=== PATIENT | female | born 1965 | race Caucasian/White ===

== ENCOUNTER 2020-05-11 06:23 | Inpatient (IN) ==
[2020-05-11] MEDS ORDERED: DOPamine 800 MG/250 ML PREMIX IV ONE (06:24)
[2020-05-11] MEDS ORDERED: SODIUM CHLORIDE 0.9% 1,000 ML IV STA (07:01)
[2020-05-11] MEDS ORDERED: VANCOMYCIN INJ 1,000 MG in SODIUM CHLORIDE 0.9% 250 ML IV STA (07:02)
[2020-05-11] MEDS ORDERED: LEVOFLOXACIN INJ 750 MG in PREMIX 1 EACH IV STA (07:02)
[2020-05-11 07:24] LABS: Basophils # 0.2 10*3/uL (0.0-0.2); Basophils % 0.4 % (0.0-0.8); Eosinophils # 0.3 10*3/uL (0.0-0.87); Eosinophils % 0.9 % (0.00-10.9); Hemoglobin 9.3 GM/DL (12.0-16.0); Immature Granulocytes % 4.4 %; Immature Granulocytes Absolute 1.64 #; Lymphocytes # 8.8 10*3/uL (1.4-4.0); Lymphocytes % 23.9 % (21.3-54.2); Mean Corpuscular HGB Conc 33.2 GM/DL (32-36); Mean Corpuscular Volume 84.1 FL (87-102); Mean Platelet Volume 11.8 FL (9.6-12.0); NRBC # 2.86 10*3/uL; Neutrophils % 69.4 % (38.7-73.9); Platelet Count 163 T/CUMM (130-400); Red Blood Count 3.33 MC/CUMM (3.8-5.5); Red Cell Distribution Width 15.5 % (9.3-17.3)
[2020-05-11 07:41] LABS: Band Neutrophils 2 % (0-10); Eosinophils 1 % (0-10); Lymphocytes 33 % (20-55); Nucleated Red Blood Cells 4 (0-5); Platelet Estimate Adequate; Segmented Neutrophils 62 % (50-85); Total Cells Counted 100
[2020-05-11 07:42] LABS: Hypochromasia Slight; Microcytosis Slight; Ovalocytes Slight
[2020-05-11 07:45] LABS: INR 2.7; PT Patient Result 27.5 SECS (9.8-11.9); Partial Thromboplastin Time 43.8 SECS (23.9-33.8)
[2020-05-11 07:51] LABS: Albumin 2.4 G/DL (3.4-5.0); Bilirubin,Direct 1.37 MG/DL (0.0-0.20); Bilirubin,Indirect 4.1 MG/DL (0.0-1.0); Bilirubin,Total 5.5 MG/DL (0.2-1.0)
[2020-05-11] MEDS ORDERED: ONDANSETRON 4 MG/2 ML VIAL IV STA (07:56)
[2020-05-11] MEDS ORDERED: PROMETHAZINE 25 MG/1 ML VIAL IM PRN (08:22)
[2020-05-11] MEDS ORDERED: ALBUTEROL 2.5 MG/3 ML NEB RESP TX PRN (08:22)
[2020-05-11] MEDS ORDERED: ONDANSETRON 4 MG/2 ML VIAL IV PRN (08:22)
[2020-05-11] MEDS: PANTOPRAZOLE 40 MG VIAL IV SCH (08:45)
[2020-05-11] MEDS ORDERED: SODIUM CHLORIDE 0.9% 1,000 ML IV PRN ×2 (08:59→09:30)
[2020-05-11] MEDS ORDERED: PROTHROMBIN COMPLEX CONC 1,500 UNIT in IV BAG 1 EACH IV ONE (08:59)
[2020-05-11] MEDS: DEXTROSE 5% NACL 0.9% 1,000 ML IV SCH ×2 (09:00→18:25)
[2020-05-11] MEDS ORDERED: PHYTONADIONE 10 MG/1 ML AMP SUBCUT ONE ×2 (09:30→17:28)
[2020-05-11] MEDS ORDERED: HYDROmorphone 2 MG/1 ML VIAL IV PRN (09:43)
[2020-05-11 10:17] LABS: Calcium 7.1 MG/DL (8.5-10.1); Osmolality,Calculated 290.4 MOS/KG (273-304); Potassium 4.5 MMOL/L (3.5-5.1)
[2020-05-11] MEDS ORDERED: VANCOMYCIN INJ 1,000 MG in SODIUM CHLORIDE 0.9% 250 ML IV ONE (11:00)
[2020-05-11] MEDS: PIPERACILLIN/TAZOBACTAM 3,375 MG in SODIUM CHLORIDE 0.9% 100 ML IV SCH ×2 (11:46→19:21)
[2020-05-11] MEDS ORDERED: HEPARIN/NACL 0.9% 2 UNITS/ML 500 ML IV ONE (13:27)
[2020-05-11] MEDS ORDERED: PHENYLEPHRINE DRIP 20 MG/250 ML PREMIX IV ONE (13:27)
[2020-05-11] MEDS ORDERED: INDOMETHACIN SUPP 50 MG SUPP RECTAL ONE (13:29)
[2020-05-11] MEDS ORDERED: SEVOFLURANE 1 UNIT/15 MINUTE INH ONE ×5 (14:18→16:47)
[2020-05-11] MEDS ORDERED: ETOMIDATE 40 MG/20 ML VIAL IV ONE (14:19)
[2020-05-11] MEDS ORDERED: fentaNYL 100 MCG/2 ML VIAL ONE ×2 (14:19→17:16)
[2020-05-11] MEDS ORDERED: SUCCINYLCHOLINE 200 MG/10 ML VIAL ONE (14:19)
[2020-05-11] MEDS ORDERED: MIDAZOLAM 2 MG/2 ML VIAL ONE ×2 (14:19→17:05)
[2020-05-11] MEDS ORDERED: PHENYLEPHRINE 1 MG/10 ML SYRINGE IV ONE (14:19)
[2020-05-11] MEDS ORDERED: LIDOCAINE 2% 5 ML VIAL ONE (14:19)
[2020-05-11] MEDS ORDERED: propofoL 200 MG/20 ML VIAL IV ONE ×2 (14:19→16:47)
[2020-05-11 14:35] LABS: Glucose,Urine (UA) 50 mg/dL (Negative); Protein,Urine >500 MG/DL; Urine Appearance Cloudy (Clear); Urine Color Brown (Yellow); Urine Specific Gravity 1.005 (1.001-1.035)
[2020-05-11 14:36] LABS: Bilirubin,Urine 2+ mg/dL (Negative); Blood, Urine 1+ mg/dL (Negative); Ketones,Urine Negative (Negative); Nitrite,Urine Negative (Negative); Urine Urobilinogen 0.2 EU/DL (0.2-1.0)
[2020-05-11 14:37] LABS: RBC,Urine TNTC /HPF (0-4); WBC,Urine Rare /HPF (0-6)
[2020-05-11 15:59] LABS: INR 2.1; PT Patient Result 21.4 SECS (9.8-11.9)
[2020-05-11] MEDS ORDERED: SODIUM BICARBONATE 50 MEQ/50 ML VIAL IV ONE ×2 (16:13→16:49)
[2020-05-11] MEDS ORDERED: ALBUTEROL INHALER 18 GM INH ONE (16:46)
[2020-05-11] MEDS ORDERED: ONDANSETRON 4 MG/2 ML VIAL ONE (16:46)
[2020-05-11 16:47] LABS: ABG Base Excess -9.7 MMOL/L (-2.5-2.5); ABG HCO3 16.6 MMOL/L (20-26); ABG PCO2 38.9 MM HG (35-48); ABG PH 7.247 (7.35-7.45); Glucose Heart Surgery 167 MG/DL (74-106); Hematocrit Heart Surgery 26.1 PERCENT (37-47); Hemoglobin Heart Surgery 8.4 G/DL (12.0-16.0)
[2020-05-11 16:48] LABS: Potassium Heart/CVR 6.5 MMOL/L (3.5-5.1)
[2020-05-11] MEDS ORDERED: CALCIUM CHLORIDE 1,000 MG/10 ML VIAL IV ONE (16:49)
[2020-05-11 17:45] LABS: ABG Base Excess -10.9 MMOL/L (-2.5-2.5); ABG HCO3 15.7 MMOL/L (20-26); ABG PCO2 40.2 MM HG (35-48); ABG PH 7.214 (7.35-7.45); ABG TCO2 15.6 MMOL/L (23-27); Glucose Heart Surgery 191 MG/DL (74-106); Hematocrit Heart Surgery 23.6 PERCENT (37-47); Hemoglobin Heart Surgery 7.6 G/DL (12.0-16.0); Potassium Heart/CVR 5.8 MMOL/L (3.5-5.1)
[2020-05-11] MEDS ORDERED: SODIUM CHLORIDE 0.9% 1,000 ML IV ONE (17:50)
[2020-05-11] MEDS ORDERED: SODIUM POLYSTYRENE SULFATE 15 GM/60 ML BOTTLE RECTAL ONE (18:08)
[2020-05-11 18:17] LABS: Potassium 5.8 MMOL/L (3.5-5.1)
[2020-05-11] MEDS: DOPamine 800 MG/250 ML PREMIX IV PRN (19:00)
[2020-05-11] MEDS: SODIUM BICARB INJ 100 MEQ in SODIUM CHLORIDE 0.45% 1,000 ML IV SCH (19:21)
[2020-05-11 20:16] LABS: ABG Base Excess -9.1 MMOL/L (-2.5-2.5); ABG PCO2 37.2 MM HG (35-48); ABG PH 7.271 (7.35-7.45); ABG TCO2 16.3 MMOL/L (23-27); Glucose Heart Surgery 119 MG/DL (74-106); Hematocrit Heart Surgery 22.5 PERCENT (37-47); Hemoglobin Heart Surgery 7.2 G/DL (12.0-16.0); Potassium Heart/CVR 5.3 MMOL/L (3.5-5.1)
[2020-05-11] MEDS: metroNIDAZOLE INJ 500 MG in PREMIX 1 EACH IV SCH (21:34)
[2020-05-11] MEDS: OXYMETAZOLINE 0.05% NASAL SPRAY 15 ML BOTTLE BOTH NARES PRN (21:45)
[2020-05-11] MEDS: cefOXitin 1,000 MG in SODIUM CHLORIDE 0.9% 100 ML IV SCH (22:39)
[2020-05-12] MEDS: metroNIDAZOLE INJ 500 MG in PREMIX 1 EACH IV SCH ×4 (02:58→21:45)
[2020-05-12 04:15] LABS: ABG Base Excess -8.2 MMOL/L (-2.5-2.5); ABG HCO3 17.7 MMOL/L (20-26); ABG PCO2 37.6 MM HG (35-48); ABG PH 7.284 (7.35-7.45); ABG TCO2 17.1 MMOL/L (23-27)
[2020-05-12 04:19] LABS: Basophils # 0.1 10*3/uL (0.0-0.2); Basophils % 0.4 % (0.0-0.8); Eosinophils # 0.2 10*3/uL (0.0-0.87); Hematocrit 18.7 VOL% (35.7-47.0); Hemoglobin 6.7 GM/DL (12.0-16.0); Immature Granulocytes % 0.8 %; Immature Granulocytes Absolute 0.14 #; Lymphocytes # 5.2 10*3/uL (1.4-4.0); Lymphocytes % 29.1 % (21.3-54.2); Mean Corpuscular HGB Conc 35.8 GM/DL (32-36); Mean Platelet Volume 11.8 FL (9.6-12.0); Monocytes % 7.7 % (1.7-12.7); NRBC # 3.28 10*3/uL; Platelet Count 342 T/CUMM (130-400); Red Cell Distribution Width 16.9 % (9.3-17.3)
[2020-05-12 04:28] LABS: INR 2.2; PT Patient Result 22.4 SECS (9.8-11.9)
[2020-05-12] MEDS ORDERED: SODIUM CHLORIDE 0.9% 1,000 ML IV PRN ×2 (04:42→07:43)
[2020-05-12 05:00] LABS: Band Neutrophils 3 % (0-10); Eosinophils 2 % (0-10); Hypochromasia 1+; Lymphocytes 37 % (20-55); Metamyelocytes 2 %; Microcytosis Slight; Nucleated Red Blood Cells 22 (0-5); Platelet Estimate Normal; Segmented Neutrophils 54 % (50-85); Total Cells Counted 100
[2020-05-12 05:34] LABS: Albumin 1.8 G/DL (3.4-5.0); Bilirubin,Total 8.8 MG/DL (0.2-1.0); Calcium 6.3 MG/DL (8.5-10.1); Osmolality,Calculated 293.3 MOS/KG (273-304); Potassium 4.7 MMOL/L (3.5-5.1); Total Protein 5.1 G/DL (6.4-8.3)
[2020-05-12] MEDS: SODIUM BICARB INJ 100 MEQ in SODIUM CHLORIDE 0.45% 1,000 ML IV SCH (06:27)
[2020-05-12] MEDS: DOPamine 800 MG/250 ML PREMIX IV PRN (06:31)
[2020-05-12] MEDS ORDERED: MAGNESIUM SULF RIDER 4 GM in PREMIX 1 EACH IV PRN (06:44)
[2020-05-12] MEDS: MAGNESIUM SULF RIDER 2 GM in PREMIX 1 EACH IV PRN ×2 (08:59→10:35)
[2020-05-12] MEDS ORDERED: HYDROCORTISONE 100 MG VIAL IV SCH (09:00)
[2020-05-12 09:26] LABS: Bilirubin,Direct 4.12 MG/DL (0.0-0.20); Bilirubin,Indirect 4.8 MG/DL (0.0-1.0); Bilirubin,Total 8.9 MG/DL (0.2-1.0)
[2020-05-12] MEDS ORDERED: CALCIUM GLUCONATE 2,000 MG in SODIUM CHLORIDE 0.9% 100 ML IV PRN (09:39)
[2020-05-12] MEDS: PANTOPRAZOLE 40 MG VIAL IV SCH (10:13)
[2020-05-12] MEDS: SODIUM BICARB INJ 150 MEQ in STERILE WATER INJ 850 ML IV SCH ×2 (11:03→19:58)
[2020-05-12] MEDS: cefOXitin 1,000 MG in SODIUM CHLORIDE 0.9% 100 ML IV SCH ×2 (11:18→21:45)
[2020-05-12] MEDS: OXYMETAZOLINE 0.05% NASAL SPRAY 15 ML BOTTLE BOTH NARES PRN (11:51)
[2020-05-12 13:32] LABS: Hepatitis B Core IgM Quant < 0.05 Index; Hepatitis B Surface Ag Quant 0.13 Index; Hepatitis B Surface Ag Result Non-Reactive (NonReactive); Hepatitis C Virus Ab Quant 0.04 Index; Hepatitis C Virus Ab Result Non-Reactive (NonReactive)
[2020-05-12] MEDS ORDERED: IMMUNE GLOBULIN 10% 40 GM in PREMIX 1 EACH IV ONE (15:00)
[2020-05-12] MEDS: methylPREDNISolone SOD SUC 40 MG/1 ML VIAL IV SCH ×2 (15:26→21:41)
[2020-05-12] MEDS: MINERAL OIL/PETROLATUM OPH OINT 3.5 GM TUBE BOTH EYES SCH ×2 (15:38→21:41)
[2020-05-12 16:47] LABS: Basophils # 0.1 10*3/uL (0.0-0.2); Basophils % 0.6 % (0.0-0.8); Eosinophils # 0.2 10*3/uL (0.0-0.87); Eosinophils % 1.3 % (0.00-10.9); Hematocrit 22.5 VOL% (35.7-47.0); Hemoglobin 8.5 GM/DL (12.0-16.0); Immature Granulocytes % 0.8 %; Immature Granulocytes Absolute 0.11 #; Lymphocytes # 3.5 10*3/uL (1.4-4.0); Lymphocytes % 24.6 % (21.3-54.2); Mean Corpuscular HGB Conc 37.8 GM/DL (32-36); Mean Corpuscular Volume 87.2 FL (87-102); Mean Platelet Volume 11.7 FL (9.6-12.0); Monocytes % 9.3 % (1.7-12.7); NRBC # 4.77 10*3/uL; Neutrophils % 63.4 % (38.7-73.9); Platelet Count 365 T/CUMM (130-400); Red Blood Count 2.58 MC/CUMM (3.8-5.5); Red Cell Distribution Width 16.5 % (9.3-17.3); White Blood Count 14.3 T/CUMM (4-12)
[2020-05-12 17:13] LABS: Band Neutrophils 13 % (0-10); Eosinophils 4 % (0-10); Lymphocytes 24 % (20-55); Metamyelocytes 8 %; Nucleated Red Blood Cells 66 (0-5); Segmented Neutrophils 46 % (50-85); Total Cells Counted 100
[2020-05-12 17:14] LABS: Anisocytosis Slight; Atypical Lymphocytes 2+; Microcytosis Slight; Platelet Estimate Normal; Spherocytes 2+
[2020-05-12 17:19] LABS: Calcium 6.1 MG/DL (8.5-10.1); Osmolality,Calculated 300.3 MOS/KG (273-304); Potassium 5.1 MMOL/L (3.5-5.1)
[2020-05-12] MEDS ORDERED: FUROSEMIDE 100 MG/10 ML VIAL IV ONE (18:48)
[2020-05-13] MEDS: HYDROmorphone 2 MG/1 ML VIAL IV PRN (01:36)
[2020-05-13] MEDS: metroNIDAZOLE INJ 500 MG in PREMIX 1 EACH IV SCH ×4 (03:59→20:59)
[2020-05-13] MEDS: methylPREDNISolone SOD SUC 40 MG/1 ML VIAL IV SCH ×4 (03:59→21:00)
[2020-05-13 04:59] LABS: ABG Base Excess -6.6 MMOL/L (-2.5-2.5); ABG PCO2 46.3 MM HG (35-48); ABG PH 7.251 (7.35-7.45); ABG TCO2 19.5 MMOL/L (23-27)
[2020-05-13 05:22] LABS: Basophils # 0.1 10*3/uL (0.0-0.2); Basophils % 0.6 % (0.0-0.8); Eosinophils # 0.1 10*3/uL (0.0-0.87); Eosinophils % 0.3 % (0.00-10.9); Hematocrit 19.4 VOL% (35.7-47.0); Hemoglobin 8.3 GM/DL (12.0-16.0); Immature Granulocytes % 2.2 %; Immature Granulocytes Absolute 0.37 #; Lymphocytes % 23.4 % (21.3-54.2); Mean Corpuscular HGB Conc 42.8 GM/DL (32-36); Mean Corpuscular Volume 86.2 FL (87-102); Mean Platelet Volume 11.8 FL (9.6-12.0); Monocytes % 4.5 % (1.7-12.7); NRBC # 5.68 10*3/uL; Platelet Count 336 T/CUMM (130-400); Red Blood Count 2.25 MC/CUMM (3.8-5.5); White Blood Count 17.1 T/CUMM (4-12)
[2020-05-13 05:25] LABS: INR 1.5; PT Patient Result 15.6 SECS (9.8-11.9)
[2020-05-13 05:31] LABS: Partial Thromboplastin Time > 211.8 SECS (23.9-33.8)
[2020-05-13 05:50] LABS: Albumin 1.7 G/DL (3.4-5.0); Bilirubin,Direct 6.8 MG/DL (0.0-0.20); Bilirubin,Indirect 6.1 MG/DL (0.0-1.0); Potassium 4.9 MMOL/L (3.5-5.1); Total Protein 5.3 G/DL (6.4-8.3)
[2020-05-13 05:51] LABS: Band Neutrophils 2 % (0-10); Lymphocytes 32 % (20-55); Nucleated Red Blood Cells 47 (0-5); Platelet Estimate Adequate; Segmented Neutrophils 62 % (50-85); Total Cells Counted 100
[2020-05-13 05:52] LABS: Hypochromasia 1+; Microcytosis 1+
[2020-05-13 05:54] LABS: Bilirubin,Total 12.9 MG/DL (0.2-1.0); Calcium 5.8 MG/DL (8.5-10.1)
[2020-05-13 05:55] LABS: Calcium 5.8 MG/DL (8.5-10.1)
[2020-05-13 05:56] LABS: Total Protein 5.3 G/DL (6.4-8.3)
[2020-05-13 05:57] LABS: Potassium 4.9 MMOL/L (3.5-5.1)
[2020-05-13 05:58] LABS: Bilirubin,Total 12.9 MG/DL (0.2-1.0)
[2020-05-13] MEDS: SODIUM BICARB INJ 150 MEQ in STERILE WATER INJ 850 ML IV SCH ×2 (06:01→15:59)
[2020-05-13 06:55] LABS: INR 1.4; PT Patient Result 15.1 SECS (9.8-11.9)
[2020-05-13 06:58] LABS: Partial Thromboplastin Time > 211.8 SECS (23.9-33.8)
[2020-05-13] MEDS: PANTOPRAZOLE 40 MG VIAL IV SCH (08:36)
[2020-05-13] MEDS: MINERAL OIL/PETROLATUM OPH OINT 3.5 GM TUBE BOTH EYES SCH ×2 (08:42→21:01)
[2020-05-13 09:31] LABS: ABG Base Excess -5.5 MMOL/L (-2.5-2.5); ABG HCO3 19.8 MMOL/L (20-26); ABG Oxygen Saturation 99.9 % (95-100); ABG PH 7.328 (7.35-7.45); ABG TCO2 18.9 MMOL/L (23-27)
[2020-05-13] MEDS ORDERED: PHYTONADIONE 10 MG/1 ML AMP SUBCUT ONE (11:52)
[2020-05-13] MEDS: cefOXitin 1,000 MG in SODIUM CHLORIDE 0.9% 100 ML IV SCH ×2 (12:15→22:15)
[2020-05-13] MEDS: CALCIUM GLUCONATE 2,000 MG in SODIUM CHLORIDE 0.9% 100 ML IV SCH ×2 (13:41→17:10)
[2020-05-14] MEDS: SODIUM BICARB INJ 150 MEQ in STERILE WATER INJ 850 ML IV SCH ×3 (01:49→22:43)
[2020-05-14 03:31] LABS: ABG Base Excess -3.7 MMOL/L (-2.5-2.5); ABG HCO3 21.3 MMOL/L (20-26); ABG Oxygen Saturation 98.9 % (95-100); ABG PCO2 35.8 MM HG (35-48); ABG PH 7.377 (7.35-7.45); ABG TCO2 19.9 MMOL/L (23-27)
[2020-05-14] MEDS: metroNIDAZOLE INJ 500 MG in PREMIX 1 EACH IV SCH ×4 (03:35→20:08)
[2020-05-14] MEDS: methylPREDNISolone SOD SUC 40 MG/1 ML VIAL IV SCH ×4 (03:35→20:08)
[2020-05-14] MEDS: HYDROmorphone 2 MG/1 ML VIAL IV PRN (03:36)
[2020-05-14 04:29] LABS: Basophils # 0.1 10*3/uL (0.0-0.2); Basophils % 0.3 % (0.0-0.8); Eosinophils % 0.1 % (0.00-10.9); Hematocrit 18.5 VOL% (35.7-47.0); Immature Granulocytes % 9.8 %; Immature Granulocytes Absolute 1.98 #; Lymphocytes # 3.6 10*3/uL (1.4-4.0); Lymphocytes % 17.8 % (21.3-54.2); Mean Corpuscular HGB Conc 45.9 GM/DL (32-36); Mean Corpuscular Volume 86.9 FL (87-102); Mean Platelet Volume 11.8 FL (9.6-12.0); Monocytes % 10.7 % (1.7-12.7); NRBC # 6.02 10*3/uL; Neutrophils % 61.3 % (38.7-73.9); Platelet Count 364 T/CUMM (130-400); Red Blood Count 2.13 MC/CUMM (3.8-5.5); Red Cell Distribution Width 17.2 % (9.3-17.3); White Blood Count 20.2 T/CUMM (4-12)
[2020-05-14 04:39] LABS: Hemoglobin 8.5 GM/DL (12.0-16.0)
[2020-05-14 04:45] LABS: Band Neutrophils 3 % (0-10); Lymphocytes 29 % (20-55); Metamyelocytes 2 %; Myelocytes 1 %; Nucleated Red Blood Cells 37 (0-5); Promyelocytes 3 %; Segmented Neutrophils 58 % (50-85); Total Cells Counted 100
[2020-05-14 04:46] LABS: Hypochromasia 1+; Smudge Cells Few
[2020-05-14 04:47] LABS: Microcytosis 1+; Platelet Estimate Normal
[2020-05-14 04:57] LABS: Albumin 1.5 G/DL (3.4-5.0)
[2020-05-14 04:58] LABS: Blood Urea Nitrogen 110 MG/DL (7-18)
[2020-05-14 05:14] LABS: Alkaline Phosphatase 438 U/L (45-117); Ferritin 39801.4 ng/ml (8-252)
[2020-05-14 05:15] LABS: PT Patient Result > 178.9 SECS (9.8-11.9)
[2020-05-14 05:16] LABS: Carbon Dioxide 22 MMOL/L (21-32); Estimated Glom Filtration Rate 6 ML/MIN; Glucose 241 MG/DL (74-106); Potassium 4.5 MMOL/L (3.5-5.1); Sodium 136 MMOL/L (136-145)
[2020-05-14 05:17] LABS: Bilirubin,Total 17.14 MG/DL (0.2-1.0); INR > 17.6; Partial Thromboplastin Time > 211.8 SECS (23.9-33.8)
[2020-05-14 05:29] LABS: Aspartate Amino Transferase 206 U/L (0-37); Bilirubin,Indirect 6.1 MG/DL (0.0-1.0); Calcium < 5.0 MG/DL (8.5-10.1)
[2020-05-14 05:30] LABS: Alanine Aminotransferase 34 U/L (13-56)
[2020-05-14] MEDS: CALCIUM GLUCONATE 2,000 MG in SODIUM CHLORIDE 0.9% 100 ML IV PRN (06:11)
[2020-05-14] MEDS: PANTOPRAZOLE 40 MG VIAL IV SCH (10:11)
[2020-05-14] MEDS: MINERAL OIL/PETROLATUM OPH OINT 3.5 GM TUBE BOTH EYES SCH ×2 (10:11→20:23)
[2020-05-14 10:37] LABS: PT Patient Result > 178.9 SECS (9.8-11.9)
[2020-05-14 10:40] LABS: INR > 17.6
[2020-05-14] MEDS: cefOXitin 1,000 MG in SODIUM CHLORIDE 0.9% 100 ML IV SCH ×2 (11:29→22:45)
[2020-05-14 17:52] LABS: PT Patient Result 14.9 SECS (9.8-11.9)
[2020-05-14 17:54] LABS: INR 1.5
[2020-05-15 03:12] LABS: ABG Base Excess -1.2 MMOL/L (-2.5-2.5); ABG HCO3 23.4 MMOL/L (20-26); ABG PH 7.398 (7.35-7.45); ABG TCO2 22.7 MMOL/L (23-27)
[2020-05-15 03:39] LABS: Partial Thromboplastin Time 32.8 SECS (23.9-33.8)
[2020-05-15 03:49] LABS: PT Patient Result 15.5 SECS (9.8-11.9)
[2020-05-15 03:50] LABS: INR 1.5
[2020-05-15 03:51] LABS: Basophils # 0.1 10*3/uL (0.0-0.2); Basophils % 0.2 % (0.0-0.8); Eosinophils % 0.1 % (0.00-10.9); Hemoglobin 6.9 GM/DL (12.0-16.0); Immature Granulocytes % 21.8 %; Immature Granulocytes Absolute 7.12 #; Lymphocytes % 15.2 % (21.3-54.2); Mean Corpuscular HGB Conc 47.9 GM/DL (32-36); Mean Corpuscular Volume 87.8 FL (87-102); Mean Platelet Volume 12.2 FL (9.6-12.0); Monocytes % 9.7 % (1.7-12.7); NRBC # 3.75 10*3/uL; Red Blood Count 1.64 MC/CUMM (3.8-5.5); Red Cell Distribution Width 17.8 % (9.3-17.3); White Blood Count 32.6 T/CUMM (4-12)
[2020-05-15 03:54] LABS: Platelet Count 291 T/CUMM (130-400)
[2020-05-15 03:56] LABS: Hematocrit 14.4 VOL% (35.7-47.0)
[2020-05-15 03:57] LABS: Albumin 1.7 G/DL (3.4-5.0); Bilirubin,Direct 14.44 MG/DL (0.0-0.20); Calcium 6.1 MG/DL (8.5-10.1); Osmolality,Calculated 305.5 MOS/KG (273-304); Potassium 4.3 MMOL/L (3.5-5.1); Total Protein 5.4 G/DL (6.4-8.3)
[2020-05-15 03:59] LABS: Bilirubin,Indirect 7.3 MG/DL (0.0-1.0); Bilirubin,Total 21.7 MG/DL (0.2-1.0)
[2020-05-15] MEDS: methylPREDNISolone SOD SUC 40 MG/1 ML VIAL IV SCH ×4 (04:23→21:22)
[2020-05-15] MEDS: metroNIDAZOLE INJ 500 MG in PREMIX 1 EACH IV SCH ×4 (04:23→21:20)
[2020-05-15 04:35] LABS: Band Neutrophils 7 % (0-10); Lymphocytes 27 % (20-55); Metamyelocytes 3 %; Nucleated Red Blood Cells 17 (0-5); Promyelocytes 2 %; Segmented Neutrophils 55 % (50-85); Total Cells Counted 100
[2020-05-15 04:36] LABS: Hypochromasia 1+; Microcytosis 1+; Ovalocytes Slight
[2020-05-15 04:37] LABS: Platelet Estimate Normal
[2020-05-15] MEDS: CALCIUM GLUCONATE 2,000 MG in SODIUM CHLORIDE 0.9% 100 ML IV PRN (05:17)
[2020-05-15] MEDS ORDERED: MIDAZOLAM 100 MG in SODIUM CHLORIDE 0.9% 80 ML IV PRN (08:02)
[2020-05-15] MEDS: MINERAL OIL/PETROLATUM OPH OINT 3.5 GM TUBE BOTH EYES SCH ×2 (08:18→21:32)
[2020-05-15] MEDS: SODIUM BICARB INJ 150 MEQ in STERILE WATER INJ 850 ML IV SCH (08:53)
[2020-05-15] MEDS ORDERED: FAMOTIDINE 20 MG/2 ML VIAL IV SCH (09:00)
[2020-05-15] MEDS: cefOXitin 1,000 MG in SODIUM CHLORIDE 0.9% 100 ML IV SCH ×2 (09:19→22:30)
[2020-05-15 10:35] LABS: Hematocrit 17.8 VOL% (35.7-47.0)
[2020-05-15] MEDS ORDERED: SODIUM CHLORIDE 0.9% 1,000 ML IV PRN (10:45)
[2020-05-15] MEDS ORDERED: HEPARIN 10,000 UNIT/10 ML VIAL IV SCH (15:45)
[2020-05-15 17:24] LABS: Hematocrit 23.5 VOL% (35.7-47.0); Hemoglobin 9.9 GM/DL (12.0-16.0)
[2020-05-15] MEDS ORDERED: NOREPINEPHRINE 8 MG in SODIUM CHLORIDE 0.9% 242 ML IV PRN (21:43)
[2020-05-16 00:11] LABS: ABG Base Excess -25.6 MMOL/L (-2.5-2.5); ABG HCO3 4.6 MMOL/L (20-26); ABG Oxygen Saturation 98.6 % (95-100); ABG PCO2 22.3 MM HG (35-48); ABG PO2 167.1 MM HG (80-95); ABG TCO2 5.3 MMOL/L (23-27)
[2020-05-16] MEDS ORDERED: NOREPINEPHRINE 16 MG in SODIUM CHLORIDE 0.9% 234 ML IV PRN (00:12)
[2020-05-16 00:13] LABS: ABG PH 6.931 (7.35-7.45)
[2020-05-16] MEDS ORDERED: SODIUM BICARBONATE 50 MEQ/50 ML VIAL IV ONE ×5 (00:18→04:18)
[2020-05-16] MEDS ORDERED: SODIUM BICARB INJ 150 MEQ in STERILE WATER INJ 850 ML IV SCH (00:30)
[2020-05-16] MEDS: PHENYLEPHRINE DRIP 40 MG/250 ML PREMIX IV PRN ×2 (00:40→04:30)
[2020-05-16 01:08] LABS: Basophils # 0.2 10*3/uL (0.0-0.2); Basophils % 0.5 % (0.0-0.8); Eosinophils # 0.1 10*3/uL (0.0-0.87); Eosinophils % 0.3 % (0.00-10.9); Immature Granulocytes % 29.5 %; Immature Granulocytes Absolute 12.62 #; Lymphocytes # 8.2 10*3/uL (1.4-4.0); Mean Corpuscular HGB Conc 38.3 GM/DL (32-36); Mean Corpuscular Volume 97.3 FL (87-102); Mean Platelet Volume 12.2 FL (9.6-12.0); Monocytes % 9.9 % (1.7-12.7); NRBC # 2.78 10*3/uL; Neutrophils % 40.8 % (38.7-73.9); Red Blood Count 1.85 MC/CUMM (3.8-5.5)
[2020-05-16 01:14] LABS: Hemoglobin 6.9 GM/DL (12.0-16.0); Platelet Count 193 T/CUMM (130-400); White Blood Count 42.9 T/CUMM (4-12)
[2020-05-16] MEDS ORDERED: SODIUM CHLORIDE 0.9% 1,000 ML IV PRN (01:36)
[2020-05-16 01:50] LABS: Albumin 1.3 G/DL (3.4-5.0); Osmolality,Calculated 314.5 MOS/KG (273-304)
[2020-05-16 01:52] LABS: INR 1.8; PT Patient Result 18.6 SECS (9.8-11.9)
[2020-05-16 01:55] LABS: Bilirubin,Total 16.6 MG/DL (0.2-1.0); Potassium 7.1 MMOL/L (3.5-5.1)
[2020-05-16 01:56] LABS: Band Neutrophils 2 % (0-10); Eosinophils 1 % (0-10); Lymphocytes 38 % (20-55); Metamyelocytes 2 %; Myelocytes 1 %; Nucleated Red Blood Cells 6 (0-5); Platelet Estimate Normal; Segmented Neutrophils 50 % (50-85); Total Cells Counted 100
[2020-05-16 01:57] LABS: Hypochromasia 2+
[2020-05-16] MEDS ORDERED: ALBUMIN 5% 12.5 GM/250 ML VIAL IV ONE (01:57)
[2020-05-16] MEDS ORDERED: AMIODARONE 150 MG/3 ML VIAL IV ONE (02:00)
[2020-05-16] MEDS ORDERED: SODIUM BICARBONATE 50 MEQ/50 ML SYRINGE IV ONE ×2 (02:00→04:18)
[2020-05-16] MEDS ORDERED: CALCIUM CHLORIDE 1,000 MG/10 ML SYRINGE IV ONE (02:00)
[2020-05-16] MEDS ORDERED: ALBUMIN 5% 12.5 GM in PREMIX 1 EACH IV ONE (02:00)
[2020-05-16] MEDS ORDERED: DEXTROSE 50% 25 GM/50 ML SYRINGE IV ONE (02:00)
[2020-05-16] MEDS ORDERED: EPINEPHrine 1 MG/10 ML SYRINGE IV ONE (02:00)
[2020-05-16 02:13] LABS: Calcium 6.9 MG/DL (8.5-10.1); Total Protein 4.2 G/DL (6.4-8.3)
[2020-05-16] MEDS ORDERED: INSULIN REGULAR 10 UNIT, CALCIUM GLUCONATE 1,000 MG in DEXTROSE 10% 250 ML IV ONE (02:30)
[2020-05-16 04:12] LABS: ABG Base Excess -27.6 MMOL/L (-2.5-2.5); ABG HCO3 4.5 MMOL/L (20-26); ABG Oxygen Saturation 97.1 % (95-100); ABG TCO2 3.7 MMOL/L (23-27)
[2020-05-16 04:14] LABS: ABG PCO2 20.2 MM HG (35-48); ABG PH 6.842 (7.35-7.45)
[2020-05-16 04:21] VITALS: BP 76/47
[2020-05-16] MEDS ORDERED: INSULIN REGULAR 100 UNIT/ML ONE (04:37)
[2020-05-16] MEDS ORDERED: AMIODARONE 450 MG/9 ML VIAL IV ONE ×2 (04:38→04:41)
[2020-05-16 05:39] LABS: Albumin 1.7 G/DL (3.4-5.0); Bilirubin,Direct 12.95 MG/DL (0.0-0.20); Osmolality,Calculated 302.2 MOS/KG (273-304)
[2020-05-16 05:42] LABS: Bilirubin,Indirect 5.9 MG/DL (0.0-1.0); Bilirubin,Total 18.8 MG/DL (0.2-1.0); Potassium 8.1 MMOL/L (3.5-5.1)
[2020-05-16 06:23] LABS: HDL Cholesterol < 10 MG/DL (40-60); Triglycerides 1706 MG/DL (2-150); VLDL CHOLESTEROL 341.2 MG/DL
[2020-05-17] MEDS ORDERED: SODIUM BICARBONATE 50 MEQ/50 ML SYRINGE IV ONE (04:27)
[2020-05-17] MEDS ORDERED: DEXTROSE 50% 25 GM/50 ML SYRINGE IV ONE (04:27)
[2020-05-17] MEDS ORDERED: AMIODARONE 150 MG/3 ML VIAL ONE (04:27)
[2020-05-17] MEDS ORDERED: CALCIUM CHLORIDE 1,000 MG/10 ML SYRINGE IV ONE (04:27)
[2020-05-17] MEDS ORDERED: EPINEPHrine 1 MG/10 ML SYRINGE ONE (04:27)
[2020-05-17 09:41] LABS: Coag Factor VIII Activity Assa > 600 % (55 - 200)
== END 2020-05-16 06:22 | disposition expired | DRG 441 ==
LOC: EDBD → EDUNIT# → N.ED 06:23 → N.EDINP 07:43 → SUATTDRO 07:43 → N.ICU 08:41
PROVIDERS: ADMIT Internal Medicine; ATTEND Family Medicine